=== PATIENT | female | born 1950 | race Caucasian/White ===

== ENCOUNTER 2019-07-11 00:09 | Emergency (ER) | payer OTHER ==
[~2019-07-11] VITALS: Ht 157.5 cm; Wt 70.3 kg
[~2019-07-11 00:09] MED LIST: AVAPRO150 MG; BENADRYL25 MG PO; GLUCOPHAGE XR500 MG; PEPCID40 MG PO; SIMVASTATIN40 MG; TRICOR145 MG; URETRON D/S TAB1 TAB; VITAMIN D400 UNI2
[2019-07-11] MEDS ORDERED: PEPCID40 MG PO (05:30)
[2019-07-11] MEDS ORDERED: CIPRO500 MG/5 M PO (05:30)
[2019-07-11] MEDS ORDERED: ZOFRAN4 MG PO (05:30)
== END 2019-07-11 05:42 | disposition home or self-care (01) ==
LOC: ER 00:09
DX: K29.60 Other gastritis without bleeding (principal); N39.0 Urinary tract infection, site not specified

== ENCOUNTER 2024-08-26 18:52 | Emergency (ER) | payer OTHER ==
[~2024-08-26] VITALS: Ht 157.5 cm; Wt 61.2 kg
[~2024-08-26 18:52] MED LIST changes: +CIPRO500 MG/5 M PO; +GABAPENTIN400 MG PO; +ZOFRAN4 MG PO
[2024-08-26] MEDS ORDERED: ORPHENADRINE CITRATE 30 MG/ML AMPUL IM STA (19:23)
[2024-08-26] MEDS ORDERED: DEXAMETHASONE SODIUM PHOSPHATE 4 MG/ML VIAL IM STA (19:24)
[2024-08-26] MEDS ORDERED: NORFLEX100MG PO (20:31)
== END 2024-08-26 20:38 | disposition home or self-care (01) ==
LOC: ER 18:54
DX: M62.838 Other muscle spasm (principal)
CPT/HCPCS: 71046; 72040; 96372; 99283; J1100; J2360

== ENCOUNTER 2025-01-02 13:42 | Emergency (ER) | payer OTHER ==
[~2025-01-02] VITALS: Ht 172.7 cm; Wt 57.6 kg
[~2025-01-02 13:42] MED LIST changes: +NORFLEX100MG PO
[2025-01-02] MEDS ORDERED: SYNJARDY XR 251 EACH (15:15)
[2025-01-02] MEDS ORDERED: METHYLPREDNISOLONE SOD SUCC 125 MG VIAL IV STA (17:14)
[2025-01-02] MEDS ORDERED: CEFTRIAXONE SODIUM 1,000 MG VIAL IV STA (17:14)
[2025-01-02 17:40] LABS: HEMATOCRIT 44.3 % (36.0-45.00); HEMOGLOBIN 14.4 g/dL (12.0-15.00); MEAN CELL VOLUME 84.6 fL (80.00-100.00); MEAN CORPUSCULAR HEMOGLOBIN 27.5 pg (27.00-32.0); MEAN CORPUSCULAR HGB CONC 32.4 g/dl (32.0-36.0); PLATELET COUNT 208 K/uL (150-450); RED BLOOD COUNT 5.24 M/uL (4.00-6.00); RED CELL DISTRIBUTION WIDTH 15.2 % (11.5-14.5)
[2025-01-02 18:06] LABS: CALCIUM 9.8 mg/dL (8.5-10.1); CREATININE SERUM 0.92 mg/dL (0.55-1.02); GFR 59.35; POTASSIUM 3.3 mEq/L (3.5-5.1)
== END 2025-01-02 19:34 | disposition home or self-care (01) ==
LOC: ER 13:44
PROVIDERS: General Practice
DX: R05.9 Cough, unspecified (principal); Z20.822 Contact with and (suspected) exposure to COVID-19